=== PATIENT | female | born 1985 | race Caucasian/White ===

== ENCOUNTER → 2016-12-29 | Outpatient (CLI) | payer OTHER ==
[~2016-12-29] VITALS: Ht 154.9 cm; Wt 56.0 kg
[~2016-12-29] MED LIST: DIFLUCAN150 MG PO; FLAGYL500 MG PO; LEXAPRO20 MG PO; PRENATAL TABLE1 EAC3 PO; SUBOXONE 12 MG1 EACH SL; ZOFRAN4 MG PO
[2016-12-29 09:05] VITALS: BP 118/63
== END | disposition home or self-care (01) ==
LOC: IVINF 12-28 09:30
DX: O26.892 Other specified pregnancy related conditions, second trimester (principal); Z3A.28 28 weeks gestation of pregnancy; Z67.91 Unspecified blood type, Rh negative
CPT/HCPCS: 96372; J2790

== ENCOUNTER 2017-03-11 06:13 | Inpatient (IN) | payer OTHER ==
[2017-03-11] VITALS (12 sets, daily range): BP systolic 105–146; BP diastolic 64–85
[~2017-03-11] VITALS: Ht 154.9 cm; Wt 62.6 kg
[2017-03-11 07:22] LABS: EOSINOPHIL (%) 0.7 % (0-5); EOSINOPHIL COUNT 0.1 K/uL (0-0.3); HEMATOCRIT 39.6 % (36.0-46.0); IMMATURE GRANULOCYTE (%) 0.6 % (0.0-0.7); IMMATURE GRANULOCYTE COUNT 0.1 K/uL; INSTRUMENT ABS NEUTROPHIL CT 10.1 K/uL; LYMPHOCYTE COUNT 1.7 K/uL (1.0-2.8); MCH 29.4 PG (29.0-34.0); MCHC 33.6 G/DL (30.0-36.0); MCV 87.6 FL (83-99); MEAN PLAT.VOLUME 11.4 uM^3 (9.5-12.4); MONOCYTE (%) 4.9 % (3-12); MONOCYTE COUNT 0.6 K/uL (0-0.8); NEUTROPHIL (%) 80.1 % (45-76); NEUTROPHIL COUNT 10.1 K/uL (1.8-6.4); PLATELET COUNT 172 K/uL (156-360); RBC DIS.WIDTH-CV 12.9 % (11.8-14.6); RBC DIS.WIDTH-SD 41.3 % (39-53); RED BLOOD COUNT 4.52 M/uL (3.80-5.20); WHITE BLOOD COUNT 12.6 K/uL (4.1-10.2)
[2017-03-11 08:33] LABS: AMPHETAMINES QUANT VALUE 0 NG/ML; BARBITUATES QUANT VALUE 0 NG/ML; BENZODIAZEPINES QUANT VALUE 0 NG/ML; BENZODIAZEPINES, URINE SCREEN Negative (200 ng/mL); MARIJUANA QUANT VALUE 0 NG/ML; OPIATES QUANTITATIVE VALUE 0 NG/ML; PHENCYCLIDINE QUANT VALUE 0 NG/ML
[2017-03-11 12:43] LABS: AMPHETAMINE NEGATIVE (500 ng/mL); BARBITURATES NEGATIVE (200 ng/mL); BENZODIAZEPINES NEGATIVE (150 ng/mL); COCAINE NEGATIVE (150 ng/mL); METHADONE NEGATIVE (200 ng/mL); METHAMPHETAMINE NEGATIVE (500 ng/mL); OPIATES (MORPHINE) NEGATIVE (100 ng/mL); OXYCODONE NEGATIVE (100 ng/mL); PHENCYCLIDINE NEGATIVE (25 ng/mL); PROPOXYPHENE NEGATIVE (300 ng/mL); THC CANNABINOIDS NEGATIVE (50 ng/mL); TRICYCLIC ANTIDEPRESSANTS NEGATIVE (300 ng/mL)
[2017-03-11 12:44] LABS: INTERNAL CONTROLS VALID? YES
[2017-03-12 07:18] VITALS: BP 111/78
[2017-03-12 15:41] VITALS: BP 160/67
[2017-03-12] MEDS ORDERED: IBUPROFEN800 MG PO (15:59)
[2017-03-12 18:50] VITALS: BP 109/64
== END 2017-03-12 19:30 | disposition home or self-care (01) | DRG 775 ==
LOC: LDRP-OP 06:13 → 2WEST 06:14 → LDRP-OP 04-18 16:08
PROVIDERS: Obstetrics & Gynecology
PROC: 10E0XZZ Delivery of Products of Conception, External Approach (ICD-10-PCS; principal; 2017-03-11)
DX: O99.324 Drug use complicating childbirth (principal); F19.90 Other psychoactive substance use, unspecified, uncomplicated; O99.334 Smoking (tobacco) complicating childbirth; F17.210 Nicotine dependence, cigarettes, uncomplicated; O99.344 Other mental disorders complicating childbirth; F33.9 Major depressive disorder, recurrent, unspecified; Z3A.38 38 weeks gestation of pregnancy; Z37.0 Single live birth
CPT/HCPCS: 80306 90; 83030; 85025; 86850; 86900; 86901; J0574; J1050; J2790; J7120